=== PATIENT | male | born 1985 | race Two or more races ===

== ENCOUNTER 2016-09-17 19:04 | Emergency (ER) | payer OTHER ==
[~2016-09-17] VITALS: Ht 170.2 cm; Wt 74.5 kg
[2016-09-17 19:06] VITALS: Ht 170.2 cm; Wt 74.5 kg
[2016-09-17] MEDS ORDERED: ONDANSETRON 4 MG INJ IV STA (19:20)
[2016-09-17] MEDS ORDERED: morphine 4 MG/ML VIAL IV STA (19:20)
[2016-09-17 20:15] LABS: ADD SCAN DIFF NO
[2016-09-17 20:17] LABS: HEMATOCRIT 45.6 % (42.0-52.0); HEMOGLOBIN 15.1 g/dl (14.0-18.0); MEAN CORPUSCULAR HEMOGLOBIN 27.6 pg (29.0-33.0); MEAN CORPUSCULAR HGB CONC 33.1 g/dl (32.0-37.0); MEAN CORPUSCULAR VOLUME 83.2 fl (82.0-101.0); MEAN PLATELET VOLUME 9.9 fl (7.4-10.4); PLATELET COUNT 335 10^3/UL (140-415); RED BLOOD COUNT 5.48 10^6/ul (4.70-6.10); RED CELL DISTRIBUTION WIDTH 12.3 % (11.5-14.5); WHITE BLOOD COUNT 9.1 10^3/ul (4.8-10.8)
[2016-09-17 20:27] LABS: ALBUMIN 5.1 g/dl (3.3-4.9)
[2016-09-17 20:30] LABS: ALBUMIN/GLOBULIN RATIO 1.5; BILIRUBIN,INDIRECT 0.3 mg/dl (0-1.1); BILIRUBIN,TOTAL 0.3 mg/dl (0.2-1.3); CREATININE 0.98 mg/dl (0.61-1.24); TOTAL PROTEIN 8.5 g/dl (6.1-8.1)
[2016-09-17 20:31] LABS: CALCIUM 9.9 mg/dl (8.4-10.2)
[2016-09-17 22:14] LABS: BASOPHILS % 0.3 % (0.0-2.0); EOSINOPHILS # 0.3 10^3/ul (0.0-0.5); EOSINOPHILS % 2.8 % (0.0-7.0); LYMPHOCYTES # 2.8 10^3/ul (0.8-2.9); LYMPHOCYTES % 30.4 % (15.0-51.0); MONOCYTE # 0.6 10^3/ul (0.3-0.9); MONOCYTES % 6.1 % (0.0-11.0); NEUTROPHIL # 5.4 10^3/ul (1.6-7.5)
[2016-09-17] MEDS ORDERED: IOHEXOL 300MG/ML 150 ML BTL ONE (22:21)
[2016-09-17] MEDS ORDERED: SOD CHLORIDE 0.9% 100 ML ONE (22:21)
--- NOTE | 2016-09-17 22:57 | RADRPT ---
PROCEDURE: CT Abdomen and Pelvis with contrast. CLINICAL INDICATION: Abdomen and pelvis pain. Left lower quadrant pain. TECHNIQUE: CT scan of the abdomen and pelvis with contrast was performed. The patient was scanned following the uncomplicated intravenous administration of 100 cc of Omnipaque-300. Coronal and sag ittal reformatted images were obtained from the axial source images. Images were reviewed on a high- resolution PACS workstation. Total exam DLP is 607.31 mGy-cm. CTDIvol is 9.74 mGy. One or more of the following dose reduction techniques were used: Automated exposure control, adjustment of the mA and/or kV according to patient size, use of iterative reconstruction technique. COMPARISON: None. FINDINGS: The lung bases are normal. There is no pleural effusion. The liver is normal in size and attenuation. There is no focal hepatic lesion. The gallbladder and bile ducts are normal. The spleen is normal in size. There is ill-defined low attenuation nodule superiorly posteriorly in the spleen measuring 0.7 cm. There is no other focal splenic lesion. Both adrenals are normal with no enlargement or mass. The pancreas is unremarkable with no mass or evidence of pancreatitis. Both kidneys demonstrate normal contrast enhancement. There is no renal mass or hydronephrosis. The abdominal aorta is not dilated. There is no retroperitoneal lymphadenopathy or mass. There is no pelvic lymphadenopathy or mass. The bladder and distal ureters are normal. The appendix is well seen and appears normal. Benign calcified mesenteric lymph nodes are present in the right side of the abdomen. There is a region of epiploic appendagitis with surrounding mesenteric edema in the mid descending c olon anteriorly on axial image 3-83. The inflamed epiploic appendage is also visualized on the kamlesh nal image [id number]. The bowel and mesentery are otherwise normal. There is no fluid collection or mas s to suggest abscess. There is no free fluid or free gas. The osseous structures are unremarkable with no fracture or lytic lesion. IMPRESSION: 1. Ill-defined low attenuation nodule superiorly posteriorly in the spleen measuring 0.7 cm, probab ly benign. 2. Benign calcified mesenteric lymph nodes in the right side of the abdomen. 3. Epiploic appendagitis in the mid descending colon anteriorly. 4. Otherwise unremarkable study. RPTAT: QQ .Unruly Albarran MD, MD Date Time Electronically viewed and signed by .Unruly Albarran MD, MD on 09/17/2016 22:56 .R/
[2016-09-17] MEDS ORDERED: HYDR-906 PO (23:25)
[2016-09-17] MEDS ORDERED: IBUP800T25 PO (23:25)
--- NOTE | 2016-09-17 23:30 | ERD ---
ER Documentation Chief Complaint Date/Time DATE: 09/17/16 TIME: 23:26 Chief Complaint left sided abd pain x 2 days HPI This is a 30-year-old male with a history of 2 days of constant left-sided abdominal pain no nausea vomiting diarrhea or fever the pain is not worse by anything or made better by anything. He denies any trauma no hematuria no dysuria. He says the pain is located in the left mid lateral abdomen there is no radiation of pain ROS All systems reviewed and are negative except as per history of present illness. Medications Home Meds Active Scripts Hydrocodone/Acetaminophen (Milton 5-325 Tablet) 1 Each Tablet, 1 TAB PO Q6H Y for PAIN, #20 TAB Prov:LEKKOS,APOSTOLOS A. DO 09/17/16 Ibuprofen* (Motrin*) 800 Mg Tab, 800 MG PO Q6H Y for PAIN AND OR ELEVATED TEMP, #30 TAB Prov:LEKKOS,APOSTOLOS A. DO 09/17/16 Allergies Allergies: Coded Allergies: No Known Allergy (Unverified , 06/04/14) PMhx/Soc Medical and Surgical Hx: pt denies Medical Hx, pt denies Surgical Hx Hx Alcohol Use: No Hx Substance Use: No Hx Tobacco Use: No Smoking Status: Former smoker FmHx Family History: No coronary disease Physical Exam Vitals Vital Signs Date Time Temp Pulse Resp B/P Pulse Ox O2 Delivery O2 Flow Rate FiO2 09/17/16 19:06 98.3 93 20 132/86 100 Physical Exam Const: Well-developed, well-nourished Head: Atraumatic, normocephalic Eyes: Normal Conjunctiva, PERRLA, EOMI, normal sclera, no nystagmus ENT: Normal External Ears, Nose and Mouth, moist mucus membranes. Neck: Full range of motion. No meningismus, no lymphadenopathy. Resp: Clear to auscultation bilaterally, no wheezing, rhonchi, rales Cardio: Regular rate and rhythm, no murmurs, S1 S2 present Abd: Soft, mild left midabdominal lateral tenderness, non distended. Normal bowel sounds, no guarding or rebound, no pulsitile abdominal masses or bruits Skin: No petechiae or rashes, no ecchymosis , no maculopapular rash Back: No midline or flank tenderness Ext: No cyanosis, or edema, FROM x 4, normal inspection, neurovascularly intact x 4 Neur: Awake and alert, STR 5/5 x 4, sensation intact x 4, no focal findings, cerebellum intact Psych: Normal Mood and Affect Result Diagram: 09/17/16194409/17/161944 Results 24 hrs Laboratory Tests Test 09/17/16 19:45 White Blood Count 9.110^3/ul Red Blood Count 5.4810^6/ul Hemoglobin 15.1g/dl Hematocrit 45.6% Mean Corpuscular Volume 83.2fl Mean Corpuscular Hemoglobin 27.6pg Mean Corpuscular Hemoglobin Concent 33.1g/dl Red Cell Distribution Width 12.3% Platelet Count 90034^3/UL Mean Platelet Volume 9.9fl Neutrophils % 60.0% Lymphocytes % 30.4% Monocytes % 6.1% Eosinophils % 2.8% Basophils % 0.3% Nucleated Red Blood Cells % 0.0/100WBC Neutrophils # 5.410^3/ul Lymphocytes # 2.810^3/ul Monocytes # 0.610^3/ul Eosinophils # 0.310^3/ul Basophils # 0.010^3/ul Nucleated Red Blood Cells # 0.010^3/ul Sodium Level 141mmol/L Potassium Level 4.0mmol/L Chloride Level 99mmol/L Carbon Dioxide Level 27mmol/L Anion Gap 19 Blood Urea Nitrogen 17mg/dl Creatinine 0.98mg/dl Glucose Level 96mg/dl Calcium Level 9.9mg/dl Total Bilirubin 0.3mg/dl Direct Bilirubin 0.00mg/dl Indirect Bilirubin 0.3mg/dl Aspartate Amino Transf (AST/SGOT) 26IU/L Alanine Aminotransferase (ALT/SGPT) 41IU/L Alkaline Phosphatase 83IU/L Total Protein 8.5g/dl Albumin 5.1g/dl Globulin 3.40g/dl Albumin/Globulin Ratio 1.50 Lipase 77U/L Current Medications Medications (Trade) Dose Ordered Sig/Glynn Route PRN Reason Start Time Stop Time Status Last Admin Dose Admin Morphine Sulfate (morphine) 4 mg ONCE STAT IV 09/17/16 19:20 09/17/16 19:22 DC 09/17/16 19:47 Ondansetron HCl (Zofran Inj) 4 mg ONCE STAT IV 09/17/16 19:20 09/17/16 19:22 DC 09/17/16 19:47 IV Flush 10 ml 10 ml STK-MED ONCE .ROUTE 09/17/16 22:21 09/17/16 22:22 DC 09/17/16 22:29 Sodium Chloride (NS) 100 ml @ ud STK-MED ONCE .ROUTE 09/17/16 22:21 09/17/16 22:22 DC 09/17/16 22:29 Iohexol (Omnipaque 300mg/ ml) 150 ml STK-MED ONCE .ROUTE 09/17/16 22:21 09/17/16 22:22 DC 09/17/16 22:29 Procedures/MDM PROCEDURE: CT Abdomen and Pelvis with contrast. CLINICAL INDICATION: Abdomen and pelvis pain. Left lower quadrant pain. TECHNIQUE: CT scan of the abdomen and pelvis with contrast was performed. The patient was scanned following the uncomplicated intravenous administration of 100 cc of Omnipaque-300. Coronal and sagittal reformatted images were obtained from the axial source images. Images were reviewed on a high- resolution PACS workstation. Total exam DLP is 607.31 mGy-cm. CTDIvol is 9.74 mGy. One or more of the following dose reduction techniques were used: Automated exposure control, adjustment of the mA and/or kV according to patient size, use of iterative reconstruction technique. COMPARISON: None. FINDINGS: The lung bases are normal. There is no pleural effusion. The liver is normal in size and attenuation. There is no focal hepatic lesion. The gallbladder and bile ducts are normal. The spleen is normal in size. There is ill-defined low attenuation nodule superiorly posteriorly in the spleen measuring 0.7 cm. There is no other focal splenic lesion. Both adrenals are normal with no enlargement or mass. The pancreas is unremarkable with no mass or evidence of pancreatitis. Both kidneys demonstrate normal contrast enhancement. There is no renal mass or hydronephrosis. The abdominal aorta is not dilated. There is no retroperitoneal lymphadenopathy or mass. There is no pelvic lymphadenopathy or mass. The bladder and distal ureters are normal. The appendix is well seen and appears normal. Benign calcified mesenteric lymph nodes are present in the right side of the abdomen. There is a region of epiploic appendagitis with surrounding mesenteric edema in the mid descending colon anteriorly on axial image 3-83. The inflamed epiploic appendage is also visualized on the coronal image [id number]. The bowel and mesentery are otherwise normal. There is no fluid collection or mass to suggest abscess. There is no free fluid or free gas. The osseous structures are unremarkable with no fracture or lytic lesion. IMPRESSION: 1. Ill-defined low attenuation nodule superiorly posteriorly in the spleen measuring 0.7 cm, probably benign. 2. Benign calcified mesenteric lymph nodes in the right side of the abdomen. 3. Epiploic appendagitis in the mid descending colon anteriorly. 4. Otherwise unremarkable study. RPTAT: QQ .Unruly Albarran MD, MD Date Time Electronically viewed and signed by .Unruly Albarran MD, MD on 09/17/2016 22:56 .R/ CC: RAS HILL DO . Patient's labs are unremarkable. His pain is due to epiploic appendage otitis. Treat with Motrin and Milton for pain and observation Departure Diagnosis: Primary Impression: Epiploic appendagitis Condition: Stable Patient Instructions: Abdominal Pain Additional Instructions: Epiploic appendigitis RAS HILL DO Sep 17, 2016 23:30
[2016-09-17 23:46] VITALS: BP 130/80; PULSE 79
== END 2016-09-17 23:46 | disposition home or self-care (01) ==
LOC: FTE 19:04
DX: K63.89 Other specified diseases of intestine (principal); Z87.891 Personal history of nicotine dependence
CPT/HCPCS: 36415; 74177; 80053; 83690; 85025; 96374; 96375; J2270; J2405; Q9967; Z7502; Z7610

== ENCOUNTER 2018-10-10 13:21 | Emergency (ER) | payer OTHER ==
[~2018-10-10] VITALS: Ht 167.6 cm; Wt 72.1 kg
[~2018-10-10 13:21] MED LIST: HYDR-4011 PO; IBUP800T48 PO
[2018-10-10 13:30] VITALS: BP 151/93; PULSE 68; RESP 20; Ht 167.6 cm; Wt 72.1 kg
[2018-10-10] MEDS ORDERED: SIME125T7 PO (15:29)
[2018-10-10] MEDS ORDERED: NAPR-985 PO (15:29)
--- NOTE | 2018-10-10 15:37 | ERD ---
ER Documentation Chief Complaint Chief Complaint c/o lower abd pain x1 day, denies NVD, denies dysuria HPI 32-year-old male presenting with abdominal pain x1 day. Patient states is intermittently happens and today is been going on for about 3-4 episodes. Has had tactile fevers at home. No pain with urination. Patient has no discharge. No vomiting. Took Tylenol this morning. Denies other abdominal problems. Denies medical problems. NKDA. Surgical history denies. Social history denies ROS All systems reviewed and are negative except as per history of present illness. Medications Home Meds Active Scripts Simethicone (Gas-X) 125 Mg Tab.chew, 125 MG PO DAILY, #40 TAB.CHEW Prov:SASHA LU PA-C 10/10/18 Naproxen* (Naprosyn*) 500 Mg Tablet, 500 MG PO BID PRN for PAIN AND/OR INFLAMMATION, #30 TAB Prov:SASHA LU PA-C 10/10/18 Hydrocodone/Acetaminophen (Ione 5-325 Tablet) 1 Each Tablet, 1 TAB PO Q6H PRN for PAIN, #20 TAB Prov:LESAVITAOSSHAWNSTOLOS A. DO 09/17/16 Ibuprofen* (Motrin*) 800 Mg Tab, 800 MG PO Q6H PRN for PAIN AND OR ELEVATED TEMP, #30 TAB Prov:LESAVITAOSAPOSTOLOS A. DO 09/17/16 Allergies Allergies: Coded Allergies: No Known Allergy (Unverified , 06/04/14) PMhx/Soc Medical and Surgical Hx: pt denies Medical Hx, pt denies Surgical Hx Hx Alcohol Use: No Hx Substance Use: No Hx Tobacco Use: No Smoking Status: Never smoker FmHx Family History: No diabetes, No coronary disease, No other Physical Exam Vitals Vital Signs Date Temp Pulse Resp B/P (MAP) Pulse Ox O2 O2 Flow FiO2 Time Delivery Rate 10/10/18 100.3 68 20 151/93 98 13:30 (112) Physical Exam GENERAL: The patient is well-appearing, well-nourished, in no acute distress HEENT: Atraumatic. Conjunctivae are pink. Pupils equal, round, and reactive to light. There is no scleral icterus. Tympanic membranes clear bilaterally. Oropharynx clear. NECK: C-spine is soft and supple. There is no meningismus. There is no cervical lymphadenopathy. CHEST: Clear to auscultation bilaterally. There are no rales, wheezes or rhonchi. HEART: Regular rate and rhythm. No murmurs, clicks, rubs or gallops. ABDOMEN:Soft, nontender and nondistended. Good bowel sounds. No rebound or guarding. No gross peritonitis. No gross organomegaly or masses. Result Diagram: 10/10/18 1431 10/10/18 1431 Results 24 hrs Laboratory Tests Test 10/10/18 14:31 White Blood Count 9.6 10^3/ul Red Blood Count 5.37 10^6/ul Hemoglobin 14.8 g/dl Hematocrit 44.3 % Mean Corpuscular Volume 82.5 fl Mean Corpuscular Hemoglobin 27.6 pg Mean Corpuscular Hemoglobin Concent 33.4 g/dl Red Cell Distribution Width 12.0 % Platelet Count 324 10^3/UL Mean Platelet Volume 9.2 fl Immature Granulocytes % 0.400 % Neutrophils % 75.3 % Lymphocytes % 17.9 % Monocytes % 5.0 % Eosinophils % 1.1 % Basophils % 0.3 % Nucleated Red Blood Cells % 0.0 /100WBC Immature Granulocytes # 0.040 10^3/ul Neutrophils # 7.3 10^3/ul Lymphocytes # 1.7 10^3/ul Monocytes # 0.5 10^3/ul Eosinophils # 0.1 10^3/ul Basophils # 0.0 10^3/ul Nucleated Red Blood Cells # 0.0 10^3/ul Urine Color YELLOW Urine Clarity CLEAR Urine pH 7.0 Urine Specific [place] 1.016 Urine Ketones NEGATIVE mg/dL Urine Nitrite NEGATIVE mg/dL Urine Bilirubin NEGATIVE mg/dL Urine Urobilinogen NEGATIVE mg/dL Urine Leukocyte Esterase NEGATIVE Patric/ul Urine Microscopic RBC 36 /HPF Urine Microscopic WBC 1 /HPF Urine Hemoglobin 3+ mg/dL Urine Glucose NEGATIVE mg/dL Urine Total Protein 3+ mg/dl Sodium Level 141 mmol/L Potassium Level 4.2 mmol/L Chloride Level 103 mmol/L Carbon Dioxide Level 27 mmol/L Anion Gap 11 Blood Urea Nitrogen 6 mg/dl Creatinine 0.62 mg/dl Est Glomerular Filtrat Rate mL/min > 60 mL/min Glucose Level 116 mg/dl Calcium Level 10.0 mg/dl Total Bilirubin 0.7 mg/dl Direct Bilirubin 0.00 mg/dl Indirect Bilirubin 0.7 mg/dl Aspartate Amino Transf (AST/SGOT) 22 IU/L Alanine Aminotransferase (ALT/SGPT) 32 IU/L Alkaline Phosphatase 97 IU/L Total Protein 8.4 g/dl Albumin 4.9 g/dl Globulin 3.50 g/dl Albumin/Globulin Ratio 1.40 Lipase 46 U/L Procedures/MDM DIAGNOSTIC IMAGING REPORT Patient: NHAN LORENZ : 1985 Age: 32 Sex: M [id number] DOS: 10/10/18 1356 Ordering MD: BENITEZ LU PA-C Location: [facility] Room/Bed: PROCEDURE: CT Abdomen and Pelvis without contrast. CLINICAL INDICATION: Abdominal pain. TECHNIQUE: CT scan of the abdomen and pelvis without contrast was performed on a multidetector high-resolution CT scanner. The patient was scanned without in travenous contrast. Coronal and sagittal reformatted images were obtained from the axial source images. Images were reviewed on a high-resolution PACS workstation. One or more of the following dose reduction techniques were used: Automated exposure control, adjustment of the mA and/or kV according to patient size, use of iterative reconstruction technique. DICOM images are available. The total exam CTDI equals 11.07 mGy and the total exam DLP equals 655.29 mGy- cm. COMPARISON: CT from 09/17/2016. FINDINGS: CT ABDOMEN: Visualized lung bases: No significant infiltrate or pleural/pericardial effusion. The heart size is normal. Liver: The liver is normal in size and demonstrates normal attenuation. No evidence of solid hepatic mass or intrahepatic ductal dilatation. Gallbladder and bile ducts: Unremarkable. Spleen: 7 mm hypodense splenic lesion is again seen, unchanged. Otherwise, unremarkable.. Pancreas: Unremarkable. No ductal dilatation, mass, or peripancreatic stranding. Adrenal glands: Unremarkable. Kidneys: No hydronephrosis, stones, or solid lesions seen. Vasculature: No abdominal aortic aneurysm. Negative IVC. Lymph nodes: Benign calcified mesenteric lymph nodes are again seen in the right abdomen. GI: There is no evidence of inflamed appendix. Negative terminal ileum and rectum. No evidence of obstruction. Negative sigmoid colon. Peritoneal cavity: No free fluid or free air. CT PELVIS: : Normal appearing bladder, distal ureters and ureterovesiculal junctions. The pelvic organs are unremarkable. Peritoneal cavity: No free fluid or free air. Lymph nodes: No adenopathy. Osseous structures: No acute osseous injury. No lytic or blastic lesions. Other: None. IMPRESSION: No evidence of acute abdominopelvic inflammatory process, mass or lymphadenopathy. MDM: 32-year-old male presenting with abdominal pain. Patient's exam is non- concerning. Patient is nontoxic-appearing. Patient is discharged with supportive medications. Patient is recommended to follow-up with primary care. All questions answered at discharge Departure Diagnosis: Primary Impression: Abdominal pain Condition: Stable Patient Instructions: Abdominal Pain Referrals: [facility] YOU HAVE RECEIVED A MEDICAL SCREENING EXAM AND THE RESULTS INDICATE THAT YOU DO NOT HAVE A CONDITION THAT REQUIRES URGENT TREATMENT IN THE EMERGENCY DEPARTMENT. FURTHER EVALUATION AND TREATMENT OF YOUR CONDITION CAN WAIT UNTIL YOU ARE SEEN IN YOUR DOCTORS OFFICE WITHIN THE NEXT 1-2 DAYS. IT IS YOUR RESPONSIBILITY TO MAKE AN APPOINTMENT FOR FOLOW-UP CARE. IF YOU HAVE A PRIMARY DOCTOR --you should call your primary doctor and schedule an appointment IF YOU DO NOT HAVE A PRIMARY DOCTOR YOU CAN CALL OUR PHYSICIAN REFERRAL HOTLINE AT IF YOU CAN NOT AFFORD TO SEE A PHYSICIAN YOU CAN CHOSE FROM THE FOLLOWING [facility] [address] [facility]. [facility] [address] [facility] [facility] [address] [facility] [facility] [address] [facility]. [facility] [address] [facility]. [facility]. [address] Additional Instructions: FOLLOW UP WITH YOUR PRIMARY CARE PHYSICIAN TOMORROW.Return to this facility if you are not improving as expected. SASHA LU PA-C October 10, 2018 15:37
== END 2018-10-10 15:57 | disposition home or self-care (01) ==
LOC: FTE 13:21
DX: R10.30 Lower abdominal pain, unspecified (principal)
CPT/HCPCS: 36415; 74176; 80053; 81001; 83690; 85025; Z7502